=== PATIENT | male | born 1955 | race Caucasian/White ===

== ENCOUNTER 2023-11-05 12:17 | Outpatient (CLI) | payer MEDICARE | END 2023-11-05 12:18 | disposition home or self-care (01) | LOC: CSHMRI 12:17 | PROVIDERS: ATTEND Orthopaedic Surgery | DX: M17.11 Unilateral primary osteoarthritis, right knee (principal); M23.321 Other meniscus derangements, posterior horn of medial meniscus, right knee; M23.331 Other meniscus derangements, other medial meniscus, right knee ==